=== PATIENT | female | born 1930 | race Caucasian/White ===

== ENCOUNTER 2017-11-03 06:07 | Day surgery (SDC) | payer MEDICARE, BC ==
[2017-11-01 13:30] VITALS: BMI 31.8
[~2017-11-03 06:07] MED LIST: ALPRAZolam 0.25 MG TAB PO PRN; ALPRAZolam 0.5 MG TAB PO PRN; ASPIRIN 325 MG TAB PO STA; ATORVASTATIN 80 MG TAB PO STA; NITROGLYCERIN SL TABS 0.4 MG TAB SUBLINGUAL PRN; SODIUM CHLORIDE 0.9% 1,000 ML in EMPTY BAG 1 BAG IV ONE
[2017-11-03 06:48] VITALS: TEMP 97.7
[2017-11-03] MEDS ORDERED: NITROGLYCERIN OINT 1 INCH/GM PACKET TOPICAL ONE (07:21)
[2017-11-03] MEDS ORDERED: ENALAPRILAT 1.25 MG/ML 1 ML VIAL ONE ×2 (07:22→08:17)
[2017-11-03] MEDS ORDERED: LIDOCAINE 2% INJ 20 MG/ML (20 ML MDV) ONE (07:46)
[2017-11-03] MEDS ORDERED: MIDAZOLAM 2 MG/2 ML VIAL ONE (07:51)
[2017-11-03] MEDS ORDERED: LIDOCAINE 2% INJ 20 MG/ML SQ ONE (07:54)
[2017-11-03] MEDS ORDERED: MIDAZOLAM 2 MG/2 ML VIAL IVP ONE (07:55)
[2017-11-03] MEDS ORDERED: hydrALAZINE HCL 20 MG/ML 1 ML VIAL ONE ×2 (08:00)
[2017-11-03] MEDS ORDERED: hydrALAZINE HCL 20 MG/ML 1 ML VIAL IVP ONE (08:00)
[2017-11-03] MEDS ORDERED: ENALAPRILAT 1.25 MG/ML 1 ML VIAL IVP ONE (08:18)
[2017-11-03] MEDS ORDERED: RX INFO: IV CONTRAST WAS GIVEN 1 EACH MISC MISCELLANE PRN (08:21)
[2017-11-03] MEDS ORDERED: SODIUM CHLORIDE 0.9% 1,000 ML IV SCH (08:30)
[2017-11-03 08:51] VITALS: RESP 14
[2017-11-03 11:08] VITALS: PULSE 82
[2017-11-03 12:42] VITALS: BP 160/70
--- NOTE | 2017-12-24 10:34 | CC ---
CARDIAC CATHETERIZATION REPORT INDICATION: Unstable angina. PROCEDURE NOTE: After obtaining informed consent, left heart catheterization and coronary angiogram were performed via the right femoral artery using standard Tj catheters. Patient tolerated the procedure well without any immediate complications. Patient received moderate conscious sedation. The total sedation time was 15 minutes. Patient underwent a femoral angiogram and Angio-Seal was deployed for hemostasis. FINDINGS: 1. HEMODYNAMICS: Left ventricular end-diastolic pressure is 12 mm. There is no significant gradient across the aortic valve. 2. LEFT VENTRICULOGRAM. Left ventriculogram was performed in GAO position, shows normal left ventricular size and systolic function with an ejection fraction of 80%. 3. ANGIOGRAPHIC DATA:. 4. LEFT MAIN CORONARY ARTERY: Left main coronary artery appears calcified but is free of stenosis. Divides into left anterior descending coronary artery and circumflex coronary artery. LAD was previously stented and the stent appears patent. 5. Circumflex coronary artery shows a 50% stenosis. 6. Right coronary artery shows mild disease. This is the left dominant system. CONCLUSIONS: 1. Normal left ventricular function. 2. Patent stent within the proximal left anterior descending artery with a 50% stenosis in the circumflex coronary artery. PLAN: I reviewed angiographic data with the patient and told her that her chest discomfort and shortness of breath are probably noncardiac in origin and her management is going to be with medical therapy. MMODL / IJN: [id number] /
== END 2017-11-03 13:18 | disposition home or self-care (01) ==
LOC: CATHCVL 06:07
PROVIDERS: ATTEND Internal Medicine Cardiovascular Disease
DX: R06.02 Shortness of breath (principal); R07.89 Other chest pain; I25.110 Atherosclerotic heart disease of native coronary artery with unstable angina pectoris; I10 Essential (primary) hypertension; E78.2 Mixed hyperlipidemia; Z79.02 Long term (current) use of antithrombotics/antiplatelets; Z79.82 Long term (current) use of aspirin; Z79.899 Other long term (current) drug therapy; Z95.5 Presence of coronary angioplasty implant and graft
CPT/HCPCS: 93458; C1760; C1894; C1769; J2001; J2250; J0360